=== PATIENT | male | born 1940 | race Caucasian/White ===

== ENCOUNTER 2019-11-27 07:36 | Observation (INO) | payer MEDICARE, OTHER, SELFPAY ==
[2019-11-27] VITALS (54 sets, daily range): BP systolic 109–203; BP diastolic 58–108; PULSE 49–100; RESP 0–23; TEMP 36.4–37.2; O2SAT 90–100
--- NOTE | 2019-11-27 08:11 | W.ED.GENAD ---
Discharge Plan Disposition Patient Disposition: [facility] INPATIENT Condition: Stable Discharge Details Chief Complaint: Dizzy/Sync Clinical Impression: Vertigo Primary Care Provider: Larry Boo ED Provider: Jose Avalos Home Meds and New Rx's Prescriptions: No Action lisinopril 20 mg Tablet 20 mg PO DAILY RF: 0 glipizide 10 mg Tablet 10 mg PO BID RF: 0 cyanocobalamin (vitamin B-12) [Vitamin B-12] 1,000 mcg Tablet 1,000 mcg PO DAILY RF: 0 amlodipine 5 mg Tablet 5 mg PO DAILY RF: 0 simvastatin 80 mg Tablet 80 mg PO DAILY RF: 0 aspirin [Aspirin Low Dose] 81 mg Tablet,Delayed Release (Dr/Ec) 81 mg PO DAILY RF: 0 metformin 1,000 mg Tablet 1,000 mg PO BID RF: 0 folic acid 1 mg Tablet 1 mg PO DAILY RF: 0 metoprolol tartrate 25 mg Tablet 12.5 mg PO BID RF: 0 Medical Decision Making 79-year-old male, lives in [facility], typically has his care at [facility]. His chronic medical problems include coronary artery disease, status post CABG, diabetes, hypertension, status post TAVR. Had a normal day ice fishing yesterday, then developed nausea and vomiting that is worse with ambulation as well as unsteadiness of gait at home last night approximately 6 PM. His medications include metformin, metoprolol, amlodipine. He is not anticoagulated. He is able to demonstrate normal neurologic exam while seated in the bed. Motion provokes his emesis. Blood pressure 178/82, pulse mid 50s, 72 on the EKG. Differential diagnosis includes peripheral vertigo, must exclude central source of vertigo, he has a history of coronary disease and therefore would consider ACS. Patient referred for CT scan of the head, chest x-ray, EKG, laboratory testing. Records were requested from [facility]. He was given 2.5 mg of Valium, Zofran, a small fluid bolus. The differential diagnosis includes vestibular neuritis, intracranial mass or hemorrhage, TIA. Records obtained from [place] no previous evaluation for CVA in January 2019 including CTA as well as MRI. Patient improved with the administration of Valium and fluids, does have persistent provocation of symptoms with movement. CAT scan with no intracranial hemorrhage, there is chronic white matter ischemic changes, atrophy, small hypodensities in the basal ganglia and thalamus consistent with remote lacunar infarctions. See formal report. Case discussed with Dr. Vázquez of [facility] neurology; he agrees with CTA today and appropriate to have MRI performed tomorrow morning. States he would continue daily aspirin, no further anticoagulation or antiplatelet. CTA with limited evaluation due to suboptimal timing. See formal report. No evidence of stenosis or dissection. CT of the abdomen was also obtained without evidence of obstruction. See the formal dictation. Patient is improving with medications. He is however still unable to ambulate independently. Admission discussed with Dr. Trevino, patient states to me he wishes to be full code but would not want prolonged life support. Lab Data Lab results reviewed: Yes I reviewed the patient's lab results. Labs: Laboratory Results - last 24 hr 11/27/19 11/27/19 08:30 08:30 WBC 7.22 RBC 4.48 L Hgb 13.4 L Hct 38.7 L MCV 86.4 MCH 29.9 MCHC 34.6 RDW 12.8 Plt Count 210 MPV 9.9 Immature Gran % 0.1 Neutrophils % 83.2 Lymphocytes % 9.6 Monocytes % 6.0 Eosinophils % 0.3 Basophils % 0.8 Absolute Neutrophils 6.01 Absolute Lymphocytes 0.69 L Absolute Monocytes 0.43 Absolute Eosinophils 0.02 Absolute Basophils 0.06 Sodium 141 Potassium 3.9 Chloride 104 Carbon Dioxide 24.0 Anion Gap 13.0 H BUN 16 Creatinine 0.82 Estimated GFR/1.73 m2 >= 60.00 Glucose 226 H Calcium 8.8 Total Bilirubin 0.6 AST 19 ALT 16 Alkaline Phosphatase 78 Troponin I < 0.05 Total Protein 7.1 Albumin 3.8 Lipase 89 ECG Data Attestation: I personally reviewed and interpreted this ECG (s) as follows: Interpretation: Normal sinus rhythm with a rate of 72, the QRS is narrow, there is flattened T waves in lead I, inverted T wave in aVL and V2. There is no ST segment elevation present. QTC is 475. When compared to EKG reviewed from [facility] dated February 01, 2019, the flattening in lead I, T wave inversion in aVL are similar. HPI General Mode of arrival: EMS. Date/Time Provider Initiated Documentation: 11/27/19 07:52. Limitations to Documentation: no limitations. Information obtained by: patient and family. History of Present Illness 79 year old M presents to the emergency department with the chief complaint of Nausea and vomiting beginning at 6 PM last night, described as moderate, Quality is described as other (Motion sensation), and is localized to the head. Patient reports no radiation. Patient started experiencing this hour(s) and it has been intermittent. Movement worsens symptoms and Other factors that worsen symptoms (Standing upright, denies near syncope.) . Patient notes denies chest pain, fever/chills, headaches, shortness of breath and syncope. Patient did receive the following treatments prior to arrival, none Related Data Home Medications Medication Instructions Recorded Confirmed amlodipine 5 mg PO DAILY 11/27/19 11/27/19 aspirin [Aspirin Low Dose] 81 mg PO DAILY 11/27/19 11/27/19 cyanocobalamin (vitamin B-12) 1,000 mcg PO DAILY 11/27/19 11/27/19 [Vitamin B-12] folic acid 1 mg PO DAILY 11/27/19 11/27/19 glipizide 10 mg PO BID 11/27/19 11/27/19 lisinopril 20 mg PO DAILY 11/27/19 11/27/19 metformin 1,000 mg PO BID 11/27/19 11/27/19 metoprolol tartrate 12.5 mg PO BID 11/27/19 11/27/19 simvastatin 80 mg PO DAILY 11/27/19 11/27/19 Allergies Allergy/AdvReac Type Severity Reaction Status Date / Time No Known Allergies Allergy Unverified 11/27/19 07:53 General Stated Complaint: Dizzy/Sync CINDY: 2 Review of Systems Narrative: Denies fall or injury, no headache, no chest pain, states recently well. Symptoms began at 6 AM, he has had days of loose, watery stool. [facility] Social History Smoking/Tobacco Use Status: Former Tobacco Use Alcohol Intake: never Substance use type: does not use Exam Narrative Exam Narrative: GEN: awake, alert, oriented 3. Pleasant, well groomed, interactive. HEAD: Normocephalic, atraumatic ENT: Mucous membranes moist, oropharynx unremarkable, External ear exam unremarkable EYES: PERRL, EOMI, visual wilson intact to confrontation. NECK: Full ROM, no MELYSSA, no menigismus CHEST/RESP: Nontender, clear to auscultation bilateral, no wheeze/rhonchi/rales CARDIOVASCULAR: RRR, soft blowing murmur best at sternal border left side, no rub roger. 2+ Rad pulse bilateral ABDOMEN: Soft, nontender, no mass. +Bowel sounds EXT: Full ROM, no edema, no rash Neuro: Grossly normal neurologic exam, conversant, interactive. Cranial nerves II through XII are intact, patient able to perform [id number]. No drift. Motor 5 out of 5 throughout the upper and lower extremity. Psych: Speech fluent, thoughts congruent, affect normal Course Vital Signs Vital signs: Vital Signs Pulse 54 L 11/27/19 07:44 Respiratory Rate 15 11/27/19 07:44 Blood Pressure 201/81 H 11/27/19 07:44 Pulse Oximetry 98 11/27/19 07:44 Temperature 36.4 C L 11/27/19 07:45 Temperature Source Skin 11/27/19 07:45 Pulse 51 L 11/27/19 08:01 Pulse 62 11/27/19 08:01 Respiratory Rate 13 11/27/19 08:01 Respiratory Effort Non-Labored 11/27/19 07:45 Blood Pressure 178/82 H 11/27/19 08:01 Blood Pressure Mean 107 11/27/19 08:01 Blood Pressure Position Supine 11/27/19 07:45 Pulse Oximetry 99 11/27/19 08:01 Oxygen Delivery Method Nasal Cannula 11/27/19 07:45 Pain Level 0 11/27/19 07:45
[2019-11-27] MEDS: Normal Saline 250 ML IV (08:15)
[2019-11-27] MEDS: Ondansetron 4 MG/2 ML VIAL (08:27)
[2019-11-27] MEDS: diazePAM 10 MG/2 ML SYR 2.5 MG IVP (08:28)
[2019-11-27 08:36] LABS: Abs Immature Grans 0.01 k/cumm (0.0-0.09); Absolute Basophil Count 0.06 k/cumm (0.0-0.2); Absolute Eosinophil Count 0.02 k/cumm (0.0-0.7); Absolute Lymphocyte Count 0.69 k/cumm (1.2-3.4); Absolute Monocyte Count 0.43 k/cumm (0.11-0.7); Absolute Neutrophil Count 6.01 k/cumm (1.2-6.7); Basophils % 0.8; Eosinophils % 0.3; HCT 38.7 % (40.0-50.0); HGB 13.4 g/dL (13.5-17.5); Immature Grans % 0.1 %; Lymphocytes % 9.6; Mean Corp. HGB Concentration 34.6 g/dL (32.0-36.0); Mean Corpuscular Hemoglobin 29.9 pg (27.0-33.0); Mean Corpuscular Volume 86.4 fL (80-95); Mean Platelet Volume 9.9 fL (8.0-11.0); Neutrophils % 83.2; Platelet Count 210 x1000/uL (130-400); RBC 4.48 m/cumm (4.50-6.00); RBC Distribution Width 12.8 % (11.8-14.1); White Blood Cell Count 7.22 k/cumm (4.4-10.8)
--- NOTE | 2019-11-27 08:42 | DI.CT_ITS ---
EXAM: CT HEAD WO CLINICAL HISTORY: vomiting TECHNIQUE: Noncontrast. COMPARISON: No exams were available for comparison FINDINGS: No acute hemorrhage, mass or infarct is seen. The ventricles are normal in size. There are old bilate ral basal ganglia lacunar infarcts. No skull fracture or sinus opacification is seen. IMPRESSION: No acute abnormality.
[2019-11-27 08:51] LABS: ALT 16 U/L (16-63); AST 19 U/L (15-37); Albumin 3.8 g/dL (3.4-5.0); Alkaline Phosphatase 78 U/L (46-116); BUN 16 mg/dL (7-18); Bilirubin, Total 0.6 mg/dL (0.2-1.0); CREATININE 0.82 mg/dL (0.70-1.30); Calcium 8.8 mg/dL (8.5-10.1); Chloride 104 mmol/L (98-107); Glucose 226 mg/dL (74-106); Lipase 89 U/L (73-393); Potassium 3.9 mmol/L (3.5-5.1); Sodium 141 mmol/L (136-145); Total Protein 7.1 g/dL (6.4-8.2); Troponin I < 0.05 ng/Ml (<0.06)
--- NOTE | 2019-11-27 08:53 | DI.RAD_ITS ---
EXAM: XR CHEST 2V PA LATERAL INDICATION: vomiting. COMPARISON: No exams were available for comparison TECHNIQUE: 2D digital imaging was performed. FINDINGS: Heart size is at the upper limits of normal. An aortic valve prosthesis is seen. Sternal wires and mediastinal clips are present. No infiltrate, effusion or pulmonary edema is seen. No free air or p neumomediastinum is identified. IMPRESSION: No acute abnormality.
--- NOTE | 2019-11-27 09:10 | DI.VRAD_ITS ---
PROCEDURE INFORMATION: Exam: XR Chest, 2 Views Exam date and time: 11/27/2019 8:57 AM Age: 79 years old Clinical indication: Other: Vomiting; Prior surgery TECHNIQUE: Imaging protocol: XR of the chest Views: 2 views. COMPARISON: No relevant prior studies available. FINDINGS: Lungs: Discoid atelectasis in the left base Pleural space: Unremarkable. No pleural effusion. No pneumothorax. Heart/Mediastinum: Status post cardiac valve replacement. No cardiomegaly. Bones/joints: Median sternotomy IMPRESSION: No acute process Dictated and Authenticated by: Joaquin Hoover MD. Ordering:AMANDA Garcia MD
--- NOTE | 2019-11-27 09:12 | DI.VRAD_ITS ---
PROCEDURE INFORMATION: Exam: CT Head Without Contrast Exam date and time: 11/27/2019 8:46 AM Age: 79 years old Clinical indication: Syncope and collapse and other: Vomiting TECHNIQUE: Imaging protocol: Computed tomography of the head without contrast. COMPARISON: No relevant prior studies available. FINDINGS: Brain: No acute intracranial hemorrhage. There is mild diffuse heterogeneity of the white matter attenuation, consistent with chronic white matter ischemic changes. Mild cerebral atrophy There are multiple small hypodensities in the basal ganglia, consistent with remote lacunar infarctions. Remote lacunar infarction in the right thalamus Ventricles: Normal. No ventriculomegaly. Bones/joints: Unremarkable. No acute fracture. Sinuses: Visualized sinuses are unremarkable. No fluid levels. Mastoid air cells: Visualized mastoid air cells are well aerated. Soft tissues: Unremarkable. IMPRESSION: No acute intracranial hemorrhage. Dictated and Authenticated by: Joaquin Hoover MD. Ordering:AMANDA Garcia MD
--- NOTE | 2019-11-27 10:08 | DI.CT_ITS ---
EXAM: CT ABDOMEN PELVIS WO CLINICAL HISTORY: VOMITING, VERTIGINOUS SYMPTOMS, VASCULOPATHY TECHNIQUE: Without IV and oral contrast. COMPARISON: No exams were available for comparison FINDINGS: There is an aortic valve prosthesis. There are heavily calcified coronary arteries. The aorta is n ormal in diameter. Heart size is within normal limits. The liver, spleen and adrenals are unremarka ble. A stone is seen in the gallbladder. There is no abnormal gallbladder distention, pericholecyst ic fluid or wall thickening. The aorta and iliac arteries are calcified but normal in diameter. The pancreas is mildly atrophic. There is a tiny hyperdense cyst at the upper pole of the left kidney. There is a cyst in the mid left kidney measuring 1.9 cm. There is a tiny nonobstructing stone at th e lower pole of the right kidney. There is no hydronephrosis. The bladder is somewhat distended but unremarkable. The prostate contains calcifications but appears normal in size. The appendix is nor mal. There is a question of mild thickening of proximal jejunum and adjacent mesenteric stranding. There are small bilateral inguinal hernias. The right contains fluid and the left contains fat. Deg enerative changes are noted in the spine. IMPRESSION: Limited exam due to lack of IV and oral contrast. There is questionable mild dilatation and wall th ickening of a loop of jejunum. Cholelithiasis without evidence of biliary dilatation or acute cholec ystitis.
--- NOTE | 2019-11-27 10:13 | DI.CT_ITS ---
EXAM: CT BRAIN NECK CTA CLINICAL HISTORY: VERTIGINOUS SYMPTOMS TECHNIQUE: Post IV contrast COMPARISON: CT ABDOMEN PELVIS WO from 11/27/2019 FINDINGS: The bolus timing is suboptimal. Arterial structures are not well opacified. There is calcification of both common carotid bulbs but no significant stenosis. The vertebral arteries show normal diamete r. There is calcification in the intracranial segments of the internal carotid arteries but no visib le stenosis. No aneurysm is seen. The left A1 segment appears diminutive. Stenosis in this area ca nnot be excluded. The parotid, submandibular and thyroid glands are unremarkable. Degenerative jimenez ges are seen in the cervical spine. Lung apices appear clear. IMPRESSION: Limited exam due to suboptimal bolus timing. There is a question of a diminutive left A1 segment maura suzie stenosis.
[2019-11-27] MEDS: Omnipaque 350 MG/ML 100 ML BTL IV (10:48)
[2019-11-27 11:22] LABS: Troponin I < 0.05 ng/Ml (<0.06)
[2019-11-27] MEDS: Meclizine 25 MG TAB PO (11:31)
--- NOTE | 2019-11-27 11:31 | DI.VRAD_ITS ---
PROCEDURE INFORMATION: Exam: CT Angiography Head With Contrast Exam date and time: 11/27/2019 10:27 AM Age: 79 years old Clinical indication: Other: Vertiginous symptoms TECHNIQUE: Imaging protocol: Computed tomography angiography of the head with intravenous contrast. 3D rendering: MIP and/or 3D reconstructed images were created by the technologist. Radiation optimization: All CT scans at this facility use at least one of these dose optimization techniques: automated exposure control; mA and/or kV adjustment per patient size (includes targeted exams where dose is matched to clinical indication); or iterative reconstruction. Contrast material: OMNIPAQUE 350; Contrast volume: 85 ml; Contrast route: IV; COMPARISON: CT HEAD WO 11/27/2019 8:42 AM FINDINGS: Right internal carotid artery: Atherosclerotic calcification. Intracranial segment is patent with no significant stenosis. No aneurysm. Right anterior cerebral artery: Unremarkable. No occlusion or significant stenosis. No aneurysm. Right middle cerebral artery: Unremarkable. No occlusion or significant stenosis. No aneurysm. Right posterior cerebral artery: Unremarkable. No occlusion or significant stenosis. No aneurysm. Right vertebral artery: Unremarkable. No occlusion or significant stenosis. No aneurysm. Left internal carotid artery: Atherosclerotic calcification. Intracranial segment is patent with no significant stenosis. No aneurysm. Left anterior cerebral artery: The A1 segment is not well visualized. The left PAM distal to the anterior communicating artery is opacified. No aneurysm. Left middle cerebral artery: Unremarkable. No occlusion or significant stenosis. No aneurysm. Left posterior cerebral artery: Unremarkable. No occlusion or significant stenosis. No aneurysm. Left vertebral artery: Unremarkable. No occlusion or significant stenosis. No aneurysm. Basilar artery: Unremarkable. No occlusion or significant stenosis. No aneurysm. Other vasculature: Sub-optimal timing bolus of contrast as the venous structures are more opacified than the arterial structures. Atherosclerotic calcifications of the intracranial arteries. HEAD: Brain: Mild diffuse heterogeneity of the white matter attenuation, consistent with chronic white matter ischemic changes. Redemonstrated multiple small hypodensities in the basal ganglia consistent with remote lacunar infarctions. Remote lacunar infarction of the right thalamus. No hemorrhage, mass effect, edema or abnormal extra-axial collection. Bones/joints: Arrested pneumatization of the sphenoid bone. IMPRESSION: 1. The left A1 segment of the anterior cerebral artery is not well visualized; however, there is distal opacification of the PAM beyond the anterior communicating artery. Unclear of chronicity and could be payroll representative of suboptimal contrast bolus/technique versus congenitally diminutive. 2. If continued vertiginous symptoms, recommend correlation to laterality with otology workup. PROCEDURE INFORMATION: Exam: CT Angiography Neck With Contrast Exam date and time: 11/27/2019 10:27 AM Age: 79 years old Clinical indication: Other: Vertiginous symptoms TECHNIQUE: Imaging protocol: Computed tomography angiography of the neck with intravenous contrast. 3D rendering: MIP and/or 3D reconstructed images were created by the technologist. Radiation optimization: All CT scans at this facility use at least one of these dose optimization techniques: automated exposure control; mA and/or kV adjustment per patient size (includes targeted exams where dose is matched to clinical indication); or iterative reconstruction. Contrast material: OMNIPAQUE 350; Contrast volume: 85 ml; Contrast route: IV; COMPARISON: CT HEAD WO 11/27/2019 8:42 AM FINDINGS: VASCULATURE: Right common carotid artery: Atherosclerotic calcification of the carotid bifurcation/bulb. No significant stenosis. No dissection or occlusion. Right internal carotid artery: Unremarkable extracranial segment. No stenosis. No dissection or occlusion. Right external carotid artery: Unremarkable. No occlusion or stenosis of the origin. Right vertebral artery: Atherosclerotic calcification at the origin. No significant stenosis. No dissection or occlusion. Left common carotid artery: Atherosclerotic calcification of the carotid bifurcation/bulb. No stenosis. No dissection or occlusion. Left internal carotid artery: Unremarkable extracranial segment. No stenosis. No dissection or occlusion. Left external carotid artery: Unremarkable. No occlusion or stenosis of the origin. Left vertebral artery: Unremarkable. No stenosis. No dissection or occlusion. Other vasculature: Sub-optimal timing bolus of contrast as the venous structures are more opacified than the arterial structures. NECK: Bones/joints: No acute fracture. Spondylosis. Median sternotomy changes. Soft tissues: Large nuchal (posterior neck) subcutaneous lipomatous mass with numerous thin septations. Lymph nodes: Partially visualized mediastinal lymphadenopathy with enlarged precarinal lymph node containing calcification measuring approximately 2 cm in short axis. IMPRESSION: 1. Partially visualized calcified mediastinal lymphadenopathy. 2. Large nuchal (posterior neck) subcutaneous lipomatous mass with numerous thin septations. 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 Recommend MRI with contrast of the posterior neck to further evaluate for complexity. 3. Limited evaluation due to suboptimal timing bolus of contrast. COMMENT: Reference per NASCET criteria for degree of stenosis: Mild: less than 50% stenosis. Moderate: 50-69% stenosis. Severe: 70-94% stenosis. Near occlusion: 95-99% stenosis. Dictated and Authenticated by: Td Brush MD. Ordering:AMANDA Garcia MD
--- NOTE | 2019-11-27 11:47 | DI.VRAD_ITS ---
PROCEDURE INFORMATION: Exam: CT Abdomen And Pelvis Without Contrast Exam date and time: 11/27/2019 10:05 AM Age: 79 years old Clinical indication: Abdominal tenderness and nausea and vomiting; Additional info: Vomiting, vertiginous sx's, vasculopath TECHNIQUE: Imaging protocol: Computed tomography of the abdomen and pelvis without contrast. Radiation optimization: All CT scans at this facility use at least one of these dose optimization techniques: automated exposure control; mA and/or kV adjustment per patient size (includes targeted exams where dose is matched to clinical indication); or iterative reconstruction. COMPARISON: No relevant prior studies available. FINDINGS: Lungs: Basilar/dependent scarring and/or atelectasis. Heart: There is calcification of the mitral valve annulus. Liver: The liver is normal. Gallbladder and bile ducts: A calcified gallstone is present. Pancreas: There is diffuse atrophy of the pancreatic parenchyma. Spleen: The spleen is normal. Adrenals: Unremarkable. No mass. Kidneys and ureters: Left renal upper pole intraparenchymal density measuring approximate 6 mm may represent hemorrhagic or proteinaceous cyst. Left renal midpole fluid hypodensity measuring 1.9 cm, likely simple cysts. Punctate nonobstructing right lower pole nephrolith. No hydronephrosis. Mild bilateral perinephric stranding. Stomach and bowel: There is mild submucosal fatty infiltration about the region of the pylorus of the stomach which could represent a chronic inflammatory process. Small loop of proximal jejunum possibly with some bowel wall thickening and adjacent mesenteric stranding. No obstruction. Appendix: No evidence of appendicitis. Intraperitoneal space: Unremarkable. No free air. No significant fluid collection. Vasculature: There is severe atherosclerotic calcification of the coronary arteries. Sternotomy wires and mediastinal surgical clips are present, consistent with previous coronary arterial bypass grafting and/or aortic valve replacement. The aorta demonstrates moderate atherosclerotic calcification.There is no evidence of an abdominal aortic aneurysm. Lymph nodes: Unremarkable. No enlarged lymph nodes. Bladder: Unremarkable as visualized. Reproductive: The prostate gland demonstrates nonspecific parenchymal calcifications. Bones/joints: Spondylosis. Degenerative changes of the sacroiliac joints. Osteopenia and nonspecific heterogeneity of the bone marrow of the pelvis. No acute fracture. No concerning osseous lesion. Soft tissues: Small amount of fluid visualized within the right inguinal canal. IMPRESSION: 1. Small loop of proximal jejunum possibly with some bowel wall thickening and adjacent mesenteric stranding which could represent inflammatory/infectious process versus less likely ischemic process. Limited by lack of intravenous and enteric contrast. 2. Small amount of fluid visualized within the right inguinal canal. Recommend clinical correlation and scrotal ultrasound if needed. 3. Mild submucosal fatty infiltration about the region of the pylorus of the stomach which could represent a chronic inflammatory process. Recommend clinical correlation. 4. Gallstone in the gallbladder. No evidence of cholecystitis. 5. Severe coronary artery calcifications. Mitral annular calcifications. Aortic valve replacement/TAVR. Median sternotomy changes. Dictated and Authenticated by: Td Brush MD. Ordering:AMANDA Garcia MD
--- NOTE | 2019-11-27 13:52 | HPE_ITS ---
Date of service: 11/27/19 Time of Service: 13:53 Assessment and Plan Assessment and plan (1) Benign positional vertigo: Start date: 11/27/19 Start time: 14:09 Status: Acute Assessment and plan: States woosy and wobbling, feels like drunk when trying to ambulate. Nystagmus vertically. Nauseated with vomiting prior to arrival. Received antiemetics with IVF in ED feeling better. No longer nauseated. Does continue to have wobbly sensation when trying to ambulate. Was not able to tolerate meclizine. Valium 5 mg TID po prn dizziness Benadryl 25 IVP q [address]/CTA negative. PT-alea hallpike maneuver. Consider MRI if symptoms do not improve. (2) Nausea and vomiting in adult: Start date: 11/27/19 Start time: 14:13 Status: Acute Assessment and plan: Improving guillermo (3) Diabetes mellitus: Start date: 11/27/19 Start time: 14:16 Status: Chronic Assessment and plan: Hold metformin patient received contrast, hold glipizide will SSI and monitor fingersticks. (4) S/P TAVR (transcatheter aortic valve replacement): Start date: 11/27/19 Start time: 14:16 Status: Acute Assessment and plan: 2019. No chest pain. Trops negative. (5) HTN (hypertension): Start date: 11/27/19 Start time: 14:16 Status: Chronic Assessment and plan: Continue amlodipine History of Present Illness History of Present Illness Chief Complaint: Dizziness, nausea and vomiting Narrative: 79 y.o male with PMH of TAVR-2019, CAD, HTN, 4 vessel CABG 1959', DM, TIA, presents to [facility] ED after ice fishing yesterday going home, feeling dizzy and waking up this am with persistent dizziness accompanied with N/V. Lab work in ED was unremarkable. Imaging revealing no arthrosclerosis or CVA. Given patient symptoms this appears to be more BPV. As he is feeling better. Nausea has subsided with zofran. IVF and valium given in the ED patient states symptoms improving however when trying to ambulate a woosy feeling comes back. Mr. Gomez compares the feeling to being drunk. He is being admitted to m/s obs for further management of his symptoms. Will have PT work with him to preform alea-hallpike for relief of symptoms. He denies CP, SOB, N/V/D. Review of Systems All systems reviewed & are unremarkable except as noted in HPI and below PFSH Medical History (Updated 11/27/19 @ 14:09 by Vibha Ballesteros NP) CAD (coronary artery disease) (Chronic) Diabetes mellitus (Chronic) HTN (hypertension) (Chronic) Surgical History (Updated 11/27/19 @ 14:00 by Vibha Ballesteros NP) Hx of CABG (Chronic) S/P TAVR (transcatheter aortic valve replacement) (Acute) Social History Smoking/Tobacco Use Status: Former Tobacco Use Alcohol Intake: never Substance use type: does not use Meds Home Medications and Allergies Home Medications Medication Instructions Recorded Confirmed Type amlodipine 5 mg PO DAILY 11/27/19 11/27/19 History aspirin [Aspirin Low Dose] 81 mg PO DAILY 11/27/19 11/27/19 History cyanocobalamin (vitamin B-12) 1,000 mcg PO DAILY 11/27/19 11/27/19 History [Vitamin B-12] folic acid 1 mg PO DAILY 11/27/19 11/27/19 History glipizide 10 mg PO BID 11/27/19 11/27/19 History lisinopril 20 mg PO DAILY 11/27/19 11/27/19 History metformin 1,000 mg PO BID 11/27/19 11/27/19 History metoprolol tartrate 12.5 mg PO BID 11/27/19 11/27/19 History simvastatin 80 mg PO DAILY 11/27/19 11/27/19 History Allergies Allergy/AdvReac Type Severity Reaction Status Date / Time No Known Allergies Allergy Unverified 11/27/19 07:53 Exam Const General: cooperative, healthy appearing, comfortable, no acute distress and well groomed Nutritional Appearance: average body habitus Orientation: alert, awake and oriented x3 HENMT Head: normal to inspection, normocephalic and atraumatic Ears: hearing grossly normal bilaterally Mouth: moist mucous membranes Teeth and gingiva: poor dentition Eyes General: appearance normal, both eyes and all related structures Conjunctivae: conjunctivae normal Sclera: sclerae normal Pupils: PERRL EOM: nystagmus Neck Neck: trachea midline Thyroid: thyroid normal Carotids: normal carotid upstroke Lymphatic: no lymphadenopathy noted Chest Chest: normal inspection of the chest Resp Effort & Inspection: normal respiratory effort and able to speak in complete sentences Auscultation: clear to auscultation bilaterally Cardio Jugular venous pressure: no JVD Rate: regular rate Rhythm: regular rhythm Heart Sounds: S1 normal and S2 normal GI Inspection: normal to inspection Palpation: soft and no hepatosplenomegaly Auscultation: normal bowel sounds General: CVA tenderness and deferred Back/Spine/Pelvis Cervical Spine: normal cervical lordosis Thoracic/Lumbar Spine: thoracic and lumbar spine normal to inspection Skin General skin exam: no rashes or lesions noted Neuro General: alert, awake and oriented x3 Cranial Nerves: nystagmus Cognition: normal cognition Speech: speech normal Gait: other Extrem General: normal to inspection, full ROM and no clubbing, cyanosis or edema Right upper extremity: full ROM Left upper extremity: full ROM Right lower extremity: full ROM Left lower extremity: full ROM Psych Appearance: grossly normal and well kempt Mood: congruent mood Affect: normal affect Attitude: cooperative Results Labs Result diagrams: 11/27/19 08:30 11/27/19 08:30 Labs: Laboratory Results - last 24 hr 11/27/19 11/27/19 11/27/19 08:30 08:30 11:00 WBC 7.22 RBC 4.48 L Hgb 13.4 L Hct 38.7 L MCV 86.4 MCH 29.9 MCHC 34.6 RDW 12.8 Plt Count 210 MPV 9.9 Immature Gran % 0.1 Neutrophils % 83.2 Lymphocytes % 9.6 Monocytes % 6.0 Eosinophils % 0.3 Basophils % 0.8 Absolute Neutrophils 6.01 Absolute Lymphocytes 0.69 L Absolute Monocytes 0.43 Absolute Eosinophils 0.02 Absolute Basophils 0.06 Sodium 141 Potassium 3.9 Chloride 104 Carbon Dioxide 24.0 Anion Gap 13.0 H BUN 16 Creatinine 0.82 Estimated GFR/1.73 m2 >= 60.00 Glucose 226 H Calcium 8.8 Total Bilirubin 0.6 AST 19 ALT 16 Alkaline Phosphatase 78 Troponin I < 0.05 < 0.05 Total Protein 7.1 Albumin 3.8 Lipase 89 Last Vital Signs Temp 36.4 C L 11/27/19 13:42 Pulse 91 H 11/27/19 13:42 Resp 15 11/27/19 13:42 BP 109/61 11/27/19 13:42 Pulse Ox 98 11/27/19 13:42
[2019-11-27] MEDS: Normal Saline 1,000 ML 85 ML IV (14:31)
[2019-11-27] MEDS: Normal Saline Flush 10 ML SYR IVP ×2 (14:32→20:44)
[2019-11-27] MEDS: Enoxaparin 40 MG/0.4 ML SYR SC (14:46)
[2019-11-27] MEDS: diphenhydrAMINE 50 MG/ML VIAL 25 MG IVP ×2 (14:48→20:43)
[2019-11-27] MEDS: Insulin Aspart 300 UNITS/3 ML PEN SC (18:11)
[2019-11-27] MEDS: Metoprolol 12.5 MG TAB PO (20:44)
[2019-11-27] MEDS: Simvastatin 40 MG TAB 80 MG PO (20:44)
[2019-11-28] MEDS: diphenhydrAMINE 50 MG/ML VIAL 25 MG IVP (02:19)
[2019-11-28] MEDS: Normal Saline Flush 10 ML SYR IVP (02:20)
[2019-11-28 03:05] VITALS: BP 132/67; PULSE 54; RESP 16; TEMP 36.7; O2SAT 95
[2019-11-28 07:21] LABS: Anion Gap 7.4 mmol/L (3-11); BUN 21 mg/dL (7-18); CO2 27.6 mmol/L (21.0-32.0); CREATININE 1.13 mg/dL (0.70-1.30); Calcium 8.7 mg/dL (8.5-10.1); Chloride 108 mmol/L (98-107); Glucose 192 mg/dL (74-106); Potassium 4.2 mmol/L (3.5-5.1); Sodium 143 mmol/L (136-145)
[2019-11-28 07:56] VITALS: BP 154/75; PULSE 67; RESP 18; TEMP 36.7; O2SAT 96
[2019-11-28] MEDS: Metoprolol 12.5 MG TAB PO (08:37)
[2019-11-28] MEDS: Insulin Aspart 300 UNITS/3 ML PEN SC ×2 (08:38→11:49)
[2019-11-28] MEDS: Cyanocobalamin 500 MCG TAB 1000 MCG PO (08:38)
[2019-11-28] MEDS: Folic Acid 1 MG TAB PO (08:38)
[2019-11-28] MEDS: Lisinopril 20 MG TAB 40 MG PO (08:38)
[2019-11-28] MEDS: Meclizine 25 MG TAB PO ×2 (11:00→15:18)
[2019-11-28] MEDS: Aspirin E.C. 81 MG TABEC PO (11:00)
--- NOTE | 2019-11-28 11:00 | IN_ITS ---
Date of service: 11/28/19 Time of Service: 11:00 PT Notes Visit Reasons: Vertigo Physical Therapy Inpatient Initial Evaluation Date: 11/28/2019 Referring Doctor: Gerson Trevino MD PT Orders: PT CONSULT: Fall safety assessment. Vertigo therapy maneuvers. Precautions: Fall. Standard. Activity as tolerated. Patient Profile/Admitting Diagnosis: Patient is an 79-year-old male who presented to the ED on 11/27/2019 with chief complaints of nausea, vomiting, and dizziness especially with ambulation performance. Head CT and CTA are both negative for any atherosclerotic process nor CVA. Patient is diagnosed with benign paroxysmal positional vertigo associated with nausea and vomiting. PMHX: Medical History (Updated 11/27/19 @ 14:09 by Vibha Ballesteros NP) CAD (coronary artery disease) (Chronic) Diabetes mellitus (Chronic) HTN (hypertension) (Chronic) Surgical History (Updated 11/27/19 @ 14:00 by Vibha Ballesteros NP) Hx of CABG (Chronic) S/P TAVR (transcatheter aortic valve replacement) (Acute) Social History/Home Situation: Patient lives with in a 2 floor house with no steps to enter. Patient states that he does not need to go up to the second floor as he has everything he needs on the main floor of the house. He is independent with all last of ADLs prior to admission. He is an avid ice ayon. Equipment Owned/DME: None Subjective: Patient continues to report lightheadedness comparable to being drunk. He did emphasize that symptoms have considerably subsided and that he has not needed to use the emesis bag since this morning. He reports no falls for the past 12 months. He hopes to go home today. Objective: General Observation: Patient seen sitting on bedside chair. IV access to left UE. New: Subcutaneous lipomatous mass that is non-tender/nonpainful to palpa tion. Mental Status: Alert and oriented x4 Pain: 0/10 Vital Signs: Supine?24/88 mmHg, 69 bpm, and 97% on room air; second testing in supine?179/77 mmHg, 68 bpm, and 97% on room air Sitting?176/51 mmHg, 68 bpm, 98% on room air Standing?159/82 mmHg, 72 bpm, 96% on room air ROM: Right Upper Extremity: Shoulder Flexion WFL. Shoulder abduction WFL. Elbow flexion WFL. Wrist flexion WFL. Opening and closing of hand WFL. Left Upper Extremity: Shoulder Flexion WFL. Shoulder abduction WFL. Elbow flexion WFL. Wrist flexion WFL. Opening and closing of hand WFL. Right Lower Extremity: Hip flexion WFL. Hip abduction WFL. Knee flexion WFL. Ankle dorsiflexion WFL. Ankle plantarflexion WFL. Left Lower Extremity: Hip flexion WFL. Hip abduction WFL. Knee flexion WFL. Ankle dorsiflexion WFL. Ankle plantarflexion WFL. Strength: Right Upper Extremity: Shoulder flexors 5/5. Shoulder abductors 5/5. Elbow flexors 5/5. Elbow extensors 5/5. Grid Casting Machine Operator Helper strong. Left Upper Extremity: Shoulder flexors 5/5. Shoulder abductors 5/5. Elbow flexors 5/5. Elbow extensors 5/5. Grid Casting Machine Operator Helper strong. Right Lower Extremity: Hip flexors 5/5. Hip abductors 5/5. Knee flexors 5/5. Knee extensors 5/5. Ankle dorsiflexors 5/5. Ankle plantarflexors 5/5. Left Lower Extremity:Hip flexors 5/5. Hip abductors 5/5. Knee flexors 5/5. Knee extensors 5/5. Ankle dorsiflexors 5/5. Ankle plantarflexors 5/5. Sensation: Intact as to pain and pressure on bilateral lower extremities. Bed Mobility/Transfers: Rolling independent Supine to sit supervision Sit to supine supervision Sit to stand CGA Stand to sit CGA Bed to chair CGA Chair to bed CGA Gait: Patient tolerated level surface ambulation of 120 feet +25 feet +25 using front wheeled walker with CGA of PT and SBA of student PT. Patient did report mild unsteadiness during ambulation activity which he states has greatly improved compared to day of admission. Ataxic gait. Decrease gait velocity due to unsteadiness. Balance: Static Sitting: Normal Dynamic Sitting: Good Static Standing: Fair Dynamic Standing: Fair Special Tests: Mobility Limitations Standardized Measure [facility] AM-PAC 6 clicks Basic Mobility Inpatient Short Form: Raw Score: 19 CMS Score: 42% deficit TESTING FOR VERTIGO: Negative for spontaneous nystagmus. Sharp-Anahi test and Alar ligament test limited by nuchal subcutaneous lipomatous mass. A left torsional upbeating nystagmus was seen with both right and the left [place]-Hallpike but symptom and intensity provocation were greater with the right [place]-Hallpike. Supine head roll test negative. Informed Consent/Education: Patient instructed in purpose of PT consult and plan of care. Assessment: Patient with posterior posterior canal benign paroxysmal positional vertigo. Patient is an 79-year-old male who presented to the ED on 11/27/2019 with chief complaints of nausea, vomiting, and dizziness especially with ambulation performance. Head CT and CTA are both negative for any atherosclero tic process nor CVA. Patient is diagnosed with benign paroxysmal positional vertigo associated with nausea and vomiting, Patient presents with clinical signs and symptoms consistent with current/ad mitting diagnoses that have resulted to mobility limitations, gait instability, generalized weakness, and impairment of motor control as demonstrated by the following impairment level findings: 1. Dizziness with positional change 2. Impaired sitting/standing balance 3. Impaired activity tolerance Impairments are contributing to the following functional limitations: 1. Dependent bed mobility skills 2. Increased dependence with transfers 3. Inability to safely ambulate without assistive device and physical assistance 4. Increase completion time for mobility ADL performance 5. Increased fall risk 6. Inability to negotiate steps alone safely Patient is assessed as a 91120 moderate complexity based on the following: History: 79-year-old male with past medical history, impairment level findings, functional limitations, and [place] AM PAC score of 42% deficit Examination: Demonstrable impairment in strength, balance, and range of motion with underlying impairments and functional limitations as documented above Presentation: Evolving Decision Makin moderate complexity Goals: Goals X1 week 1. Supine-Sit independent 2. Sit-Supine independent 3. Sit-Stand independent 4. Stand-Sit independent 5. Bed-Chair independent 6. Chair-Bed independent 7. Independent gait on level surface with use of least restrictive device for at least 300 feet without report of pain nor dyspnea 8. Independent stair negotiation while holding onto bilateral rails for at least 10 steps without report of pain nor dyspnea 9. Independent with home exercise program 10. Good static and dynamic standing balance/tolerance Plan of Care/Treatment Plan: 1-2x/day, 7 days/week x 1 week. Plan of care has been reviewed with the PROJECT SCHEDULER providing the service under Physical Therapy direction. Initiate Physical Therapy intervention for strengthening, bed mobility, transfers, gait, stairs, balance training, use of assistive device. DISCHARGE RECOMMENDATIONS: Continued outpatient physical therapy for management of posterior canal BPPV as needed. Patient will highly benefit from the use of a front wheeled walker in order to increase stability of gait and reduce fall risk at discharge destination. TREATMENT CODE/TIME: Patient received initial evaluation for posterior canal BPPV and received to Robin maneuvers with good response. We will plan on a second session to do 2-3 more Robin maneuvers in order to facilitate resolution of symptoms. 33187 x 34 minutes beginning at 9:01 AM, [id number] x 30 minutes beginning at 11 AM. Thank you very much for this referral. Faina Yancey PT, DPT, CLT [facility] [place], [place]
[2019-11-28 11:28] VITALS: BP 162/73; PULSE 54; RESP 17; TEMP 36.6; O2SAT 97
--- NOTE | 2019-11-28 14:47 | PT.INTREAT ---
Date of service: 11/28/19 Time of Service: 13:19 PT Notes Visit Reasons: Vertigo Inpatient Physical Therapy Treatment Note [facility] Date: 11/28/2019 PRECAUTIONS: Fall. Standard. Activity as tolerated. SUBJECTIVE: Patient does not report any dizziness throughout to Robin maneuvers done on him however patient reports heaviness in his head upon assessment resumption of sitting position from sit maneuver that subsides after 1 to 2 minutes. OBJECTIVE: IV access remains open and the left UV. PAIN: 0/10 BED MOBILITY/TRANSFERS Rolling L/R: Independent Supine-sit: Supervision Sit-supine: Supervision Sit-stand: CGA Stand-sit: CGA Bed-Chair: CGA Chair-bed: [facility] GAIT Assistive Device: Front wheeled walker Weight bearing: Full weightbearing Assist: [facility] Distance: 25 feet +120 feet +25 feet Deviation: Gait ataxic. Gait velocity decreased. Step height and length decreased. THERA ACT: 2 Robin maneuvers performed for patient in order to facilitate resolution of left posterior canal BPPV. ASSESSMENT: Assessment: Patient with posterior posterior canal benign paroxysmal positional vertigo. Patient is an 79-year-old male who presented to the ED on 11/27/2019 with chief complaints of nausea, vomiting, and dizziness especially with ambulation performance. Head CT and CTA are both negative for any atherosclerotic process nor CVA. Patient is diagnosed with benign paroxysmal positional vertigo associated with nausea and vomiting. A Romberg test was performed during the afternoon session and yielded positive results with patient demonstrating significant posterolateral sway with vision occluded. Patient's gait abnormality along with this test result behooves the need for an MRI testing to rule out any neurologic pathology. Hospitalist and MANAGER SECONDARY will be consulted regarding this matter. Plan of Care/Treatment Plan: 1-2x/day, 7 days/week x 1 week. Plan of care has been reviewed with the PUBLIC HEALTH SANITARIAN TECHNICIAN providing the service under Physical Therapy direction. Initiate Physical Therapy intervention for strengthening, bed mobility, transfers, gait, stairs, balance training, use of assistive device. DISCHARGE RECOMMENDATIONS: Continued outpatient physical therapy for management of posterior canal BPPV as needed. Patient will highly benefit from the use of a front wheeled walker in order to increase stability of gait and reduce fall risk at discharge destination. TREATMENT CODE/TIME: 41818 x 29 minutes beginning at 1319 p.m..
[2019-11-28] MEDS: Enoxaparin 40 MG/0.4 ML SYR SC (14:52)
--- NOTE | 2019-11-28 15:18 | INITIAL_ITS ---
- If Service Date Differs Date of service: 11/28/19 Time of Service: 15:18 Care Management Initial Assess REASON FOR HOSPITALIZATION:: Vertigo PAST MEDICAL HISTORY/PAST SURGICAL HISTORY:: Nausea and vomiting in adult, benign postural vertigo, transcatheter aortic valve replacement, hypertension, diabetes. Surgical history includes CABG and TAVR PREVIOUS FUNCTIONAL STATUS/SOCIAL/FAMILY SUPPORTS:: Nikita lives with his spouse in [facility]. He has 2 of his own children and 3 stepchildren. 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 CURRENT FUNCTIONAL STATUS:: Nikita sitting up in the chair he is hopeful to be discharged home today. Nikita is able to discuss events that led to admission, including vomiting. He states he tried to manage his symptoms at home however after all day of vomiting he decided to go to the ED. Nikita describes good support at home, he states his symptoms have improved and he feels ready for discharge. ADVANCE DIRECTIVES:: None on file he is willing to accept the forms and reviewed them with his . Has patient been provided with information about the portal?: Yes Did the patient sign up for the portal?: No CODE STATUS:: Full Code INSURANCE COVERAGE / FINANCIAL ISSUES:: Medicare and [employer] CURRENT HOME/COMMUNITY SERVICES/EQUIPMENT:: None at this time. PRIMARY CARE PHYSICIAN:: Larry Cuadra POTENTIAL DISCHARGE NEEDS:: Follow-up appointment scheduled with primary care provider, medications, and follow-up plan of care PATIENT/FAMILY EDUCATION NEEDS:: Discharge education, limitations, follow-up plan of care, asked me 3 and self management. ANTICIPATED BARRIERS TO DISCHARGE:: None identified TRANSPORTATION:: Spouse to transport him home at time of discharge. PLAN:: Nikita plans on being discharged home today, he will follow-up with primary care as directed. Tim middleton coordinated by CM at time of discharge through [facility] patient's choice. No additional support services, needed at time of discharge.
--- NOTE | 2019-11-28 15:25 | W.PM.DS.N ---
Date of service: 11/28/19 Time of Service: 15:26 DS: Diagnosis Discharge Diagnosis (1) Benign positional vertigo: Status: Acute (2) Nausea and vomiting in adult: Status: Acute (3) Diabetes mellitus: Status: Chronic (4) S/P TAVR (transcatheter aortic valve replacement): Status: Acute (5) HTN (hypertension): Status: Chronic Discharge Plan Disposition Patient Disposition: HOME Condition: Stable Discharge Details Chief Complaint: Dizzy/Sync Clinical Impression: Vertigo Reason For Visit: VERTIGO Admit Date/Time: 11/27/19 12:18 Admit Provider: Gerson Pretty Attending Provider: Gerson Pretty Primary Care Provider: Larry Boo ED Provider: Jose Avalos Hospital Course Hospital Course: This is an 79 year old male with past medical history of TAVR-2019, coronary artery disease, hypertension, 4 vessel CABG , diabetes mellitus type 2, transient ischemic attack, presents to the ED at [facility] after waking up with persistent dizziness accompanied with N/V. He reports he was in his usual state of health and spent previous day ice fishing. Lab work in ED was unremarkable. Imaging revealing no arthrosclerosis or CVA. Given patient symptoms this appears to be more consistent with vertigo. His nausea has subsided with zofran. IVF and valium given in the ED patient states symptoms improving however when trying to ambulate a woosy feeling comes back. Mr. Gomez compares the feeling to being drunk. [place] [facility] [place] management of his symptoms. PT worked with him to preform alea-hallpike which was positive, they performed the paty maneuver with some improvement in his symptoms. He was reambulated but with some ataxia and positive rhomberg. other chapin neuro exam unremarkable. He has a CTA head and neck which was a limited exam due to suboptimal bolus timing. There is a question of a diminutive left A1 segment versus stenosis. We recommended and MRI/MRA of the brain which is adamantly is declining, stating that he couldn't tolerate one a year ago even with pre-med and that his symptoms are improved and he would return if needed. I did discuss that we couldn't fully and adequately evaluate him without it. He still declines. He is currently on high dose statin and full dose asa which will be continued at discharge. he will follow up with pcp for further outpatient testing and neurolgy follow up. He was advised to hold his meformin for 48 hours after CTA to avoid kidney damage. Home Meds and New Rx's Prescriptions: Continued lisinopril 20 mg Tablet 40 mg PO DAILY RF: 0 glipizide 10 mg Tablet 10 mg PO BID RF: 0 cyanocobalamin (vitamin B-12) [Vitamin B-12] 1,000 mcg Tablet 1,000 mcg PO DAILY RF: 0 simvastatin 80 mg Tablet 80 mg PO QPM RF: 0 folic acid 1 mg Tablet 1 mg PO DAILY RF: 0 metoprolol tartrate 25 mg Tablet 12.5 mg PO BID RF: 0 aspirin 325 mg Tablet 325 mg PO DAILY RF: 0 metformin 1,000 mg Tablet 1,000 mg PO BID Qty: 0 RF: 0 Discharge Instructions Instructions: Vertigo (DC) Additional Instructions: You need to hold your metformin for 48 hours (2 days) because you received IV contrast for your CAT scan. Stand Alone Forms: Nursing Discharge Form Referrals: Larry Boo [Primary Care Provider] - 11/30/19 10:30 am Activity:: walker for gait safety and stability Equipment/Supplies:: Walker Diet:: Carb Counting Discharge Orders Discharge Orders: Discharge Order (Routine); Ordered 11/28/19 Ordered By: Susanna Betancourt DS: Summary Status at Discharge Functional status at discharge: uses cane/walker Overall status at discharge: patient is progressing back to baseline Mental Status: mental status grossly normal Speech and Movement: speech and movement normal Mood: congruent mood Affect: normal affect Exam Const General: cooperative, healthy appearing, comfortable and no acute distress Nutritional Appearance: average body habitus Orientation: alert, awake and oriented x3 HENMT Head: normal to inspection, normocephalic and atraumatic Mouth: oral mucosae normal Eyes EOM: nystagmus Resp Effort & Inspection: normal respiratory effort Auscultation: clear to auscultation bilaterally Cardio Rate: regular rate Rhythm: regular rhythm GI Inspection: normal to inspection Palpation: soft Auscultation: normal bowel sounds Skin General skin exam: no rashes or lesions noted Neuro General: alert, awake and oriented x3 Cranial Nerves: CN's II-XI intact bilaterally and nystagmus Cognition: normal cognition Speech: speech normal Gait: ataxic Motor: muscle tone normal throughout and strength 5/5 throughout Extrem General: normal to inspection and full ROM Psych Mental Status: mental status grossly normal Speech and Movement: speech and movement normal Mood: congruent mood Affect: normal affect DS: Data Vitals/I&O Vitals and I&O: Vital Signs Temperature 36.6 C 11/28/19 11:28 Temperature Source Tympanic 11/28/19 11:28 Pulse 54 L 11/28/19 11:28 Pulse Rhythm Regular 11/28/19 08:40 Pulse 94 H 11/27/19 13:20 Respiratory Rate 17 11/28/19 11:28 Respiratory Effort Non-Labored 11/28/19 08:40 Respiratory Depth Normal 11/28/19 08:40 Respiratory Pattern Normal 11/28/19 08:40 Blood Pressure 162/73 H 11/28/19 11:28 Blood Pressure Mean 73 11/27/19 13:15 Blood Pressure Position Supine 11/27/19 07:45 Pulse Oximetry 97 11/28/19 11:28 Oxygen Delivery Method Room Air 11/28/19 11:28 Oxygen Flow Rate 0 11/28/19 11:28 Pain Level 0 11/28/19 11:28 Intake & Output 11/27/19 11/28/19 11/28/19 23:59 11:59 23:59 Intake Total 450.25 / 450.25 1360 / 1720 360 / 1720 Output Total 200 / 200 100 / 100 Balance 250.25 / 250.25 1260 / 1620 360 / 1620 Weight 68.4 kg 67.5 kg Intake: IV 330.25 / 330.25 1000 / 1000 Oral 120 / 120 360 / 720 360 / 720 Output: Urine 200 / 200 100 / 100 Other: Urine Color Yellow Dark Rachel Urine Appearance Clear Clear Urine Odor Normal Comment voiding into toilet w/o difficulty Stool Size Large Stool Characteristics Soft Formed Brown Voiding Methods Urinal Urinal Data Completed and Pending Labs on day of discharge: Labs from last 24 hours 11/28/19 06:30 Sodium 143 Potassium 4.2 Chloride 108 H Carbon Dioxide 27.6 Anion Gap 7.4 BUN 21 H Creatinine 1.13 Estimated GFR/1.73 m2 >= 60.00 Glucose 192 H Calcium 8.7 PFSH Medical History (Updated 11/27/19 @ 14:09 by Vibha Ballesteros NP) CAD (coronary artery disease) (Chronic) Diabetes mellitus (Chronic) HTN (hypertension) (Chronic) Surgical History (Updated 11/27/19 @ 14:00 by Vibha Ballesteros NP) Hx of CABG (Chronic) S/P TAVR (transcatheter aortic valve replacement) (Acute) Social History Smoking/Tobacco Use Status: Former Tobacco Use Alcohol Intake: never Substance use type: does not use
[2019-11-28 15:45] VITALS: BP 167/80; PULSE 58; RESP 18; TEMP 37.1; O2SAT 97
--- NOTE | 2019-11-28 16:27 | CMDISCH_ITS ---
- If Service Date Differs Date of service: 11/28/19 Time of Service: 16:27 LACE Index Scoring Tool - Questions: Length of Stay (in days): 1 Acuity (Admit via E.D.?): Yes Comorbidities: Previous M.I. E.D. Visits: 1 - Answers: Total Score: 6 Risk of Readmission: Low Risk Care Management Discharge Reason for Hospitalization: Vertigo Discharge Plan: Nikita is being discharged home today, Omar did not have FWW available, Nikita has a friend that has a FWW he can borrow. CM offered additional resouces including [facility] or other local pharmacy to purchase. Nikita wants to be discharged he has family here that will bring him home. He did decline the MRI and feels that his symptoms have improved. CM reviewed discharge plan including ambulating safety and PT recomendations. Patient/Family Education Needs: Discharge education, limitations and follow up plan of care including ask me three and self management.
--- NOTE | 2019-11-29 17:36 | PT.INDS ---
Date of service: 11/29/19 Time of Service: 17:36 PT Notes Visit Reasons: Vertigo Physical Therapy Inpatient Discharge Summary Date: 11/29/2019 Dates of Service: 11/28/2019 only Referring Doctor: Gerson Trevino MD PT Orders: PT CONSULT: Fall safety assessment. Vertigo therapy maneuvers. Precautions: Fall. Standard. Activity as tolerated. Patient Profile/Admitting Diagnosis: Patient is an 79-year-old male who presented to the ED on 11/27/2019 with chief complaints of nausea, vomiting, and dizziness especially with ambulation performance. Head CT and CTA are both negative for any atherosclerotic process nor CVA. Patient is diagnosed with benign paroxysmal positional vertigo associated with nausea and vomiting. PMHX: Medical History (Updated 11/27/19 @ 14:09 by Vibha Ballesteros NP) CAD (coronary artery disease) (Chronic) Diabetes mellitus (Chronic) HTN (hypertension) (Chronic) Surgical History (Updated 11/27/19 @ 14:00 by Vibha Ballesteros NP) Hx of CABG (Chronic) S/P TAVR (transcatheter aortic valve replacement) (Acute) Social History/Home Situation: Patient lives with in a 2 floor house with no steps to enter. Patient states that he does not need to go up to the second floor as he has everything he needs on the main floor of the house. He is independent with all last of ADLs prior to admission. He is an avid ice ayon. Equipment Owned/DME: None Subjective: NT Objective: General Observation: NT Mental Status: NT Pain: NT ROM: Right Upper Extremity: Shoulder Flexion WFL. Shoulder abduction WFL. Elbow flexion WFL. Wrist flexion WFL. Opening and closing of hand WFL. Left Upper Extremity: Shoulder Flexion WFL. Shoulder abduction WFL. Elbow flexion WFL. Wrist flexion WFL. Opening and closing of hand WFL. Right Lower Extremity: Hip flexion WFL. Hip abduction WFL. Knee flexion WFL. Ankle dorsiflexion WFL. Ankle plantarflexion WFL. Left Lower Extremity: Hip flexion WFL. Hip abduction WFL. Knee flexion WFL. Ankle dorsiflexion WFL. Ankle plantarflexion WFL. Strength: Right Upper Extremity: Shoulder flexors 5/5. Shoulder abductors 5/5. Elbow flexors 5/5. Elbow extensors 5/5. Drain Technician strong. Left Upper Extremity: Shoulder flexors 5/5. Shoulder abductors 5/5. Elbow flexors 5/5. Elbow extensors 5/5. Drain Technician strong. Right Lower Extremity: Hip flexors 5/5. Hip abductors 5/5. Knee flexors 5/5. Knee extensors 5/5. Ankle dorsiflexors 5/5. Ankle plantarflexors 5/5. Left Lower Extremity:Hip flexors 5/5. Hip abductors 5/5. Knee flexors 5/5. Knee extensors 5/5. Ankle dorsiflexors 5/5. Ankle plantarflexors 5/5. Sensation: Intact as to pain and pressure on bilateral lower extremities. Bed Mobility/Transfers: Rolling independent Supine to sit supervision Sit to supine supervision Sit to stand CGA Stand to sit CGA Bed to chair CGA Chair to bed CGA Gait: Patient tolerated level surface ambulation of 120 feet +25 feet +25 using front wheeled walker with CGA of PT and SBA of student PT. Patient did report mild unsteadiness during ambulation activity which he states has greatly improved compared to day of admission. Ataxic gait. Decrease gait velocity due to unsteadiness. Balance: Static Sitting: Normal Dynamic Sitting: Good Static Standing: Fair Dynamic Standing: Fair Special Tests: Mobility Limitations Standardized Measure [facility] 6 clicks Basic Mobility Inpatient Short Form: Raw Score: 19 CMS Score: 42% deficit TESTING FOR VERTIGO: Negative for spontaneous nystagmus. Sharp-Anahi test and Alar ligament test limited by nuchal subcutaneous lipomatous mass. A left torsional upbeating nystagmus was seen with both right and the left Andrea-Hallpike but symptom and intensity provocation were greater with the right [facility]-Hallpike. Supine head roll test negative. Assessment: Patient with posterior posterior canal benign paroxysmal positional vertigo. He is an 79-year-old male who presented to the ED on 11/27/2019 with chief complaints of nausea, vomiting, and dizziness especially with ambulation performance. Head CT and CTA are both negative for any atherosclerotic process nor CVA. Patient is diagnosed with benign paroxysmal positional vertigo associated with nausea and vomiting. For the afternoon session, a Romberg test yielded positive result with patient demonstrating significant posterolateral sway with vision occluded. Patient's gait abnormality along positive Romberg test result necessitates MRI testing to rule out any neurologic pathology. Hospitalist and LICENSED NUCLEAR CONTROL ROOM OPERATOR were in agreement but patient refused stating that his symptoms are much more reduced. He demanded to go home instead. It was explained to him that he may continue to receive skilled PT treatment for BPPV as an out patient if needed. Patient presented with clinical signs and symptoms consistent with current/admitting diagnoses that have resulted to mobility limitations, gait instability, generalized weakness, and impairment of motor control as demonstrated by the following impairment level findings: 1. Impaired sitting/standing balance 2. Impaired activity tolerance Impairments are contributing to the following functional limitations: 1. Inability to safely ambulate without assistive device and physical assistance 2. Increase completion time for mobility ADL performance 3. Increased fall risk 4. Inability to negotiate steps alone safely Goals: Goals X1 week 1. Supine-Sit independent MET 2. Sit-Supine independent NOT MET 3. Sit-Stand independent NOT MET 4. Stand-Sit independent NOT MET 5. Bed-Chair independent NOT MET 6. Chair-Bed independent NOT MET 7. Independent gait on level surface with use of least restrictive device for at least 300 feet without report of pain nor dyspnea NOT MET 8. Independent stair negotiation while holding onto bilateral rails for at least 10 steps without report of pain nor dyspnea NOT MET 9. Independent with home exercise program NOT MET 10. Good static and dynamic standing balance/tolerance NOT MET DISCHARGE RECOMMENDATIONS: Continued outpatient physical therapy for management of posterior canal BPPV as needed. Patient will highly benefit from the use of a front wheeled walker in order to increase stability of gait and reduce fall risk at discharge destination. TREATMENT CODE/TIME: NC. Thank you very much for this referral. Faina Yancey PT, DPT, CLT [facility] [place], [place]
== END 2019-11-28 17:08 | disposition home or self-care (01) ==
LOC: ER 12:17 → MS 13:33
PROVIDERS: Admitting Provider Internal Medicine; Emergency Provider Emergency Medicine; PCP Family Medicine; Visit Provider Internal Medicine
DX: H81.10 Benign paroxysmal vertigo, unspecified ear (principal); R11.2 Nausea with vomiting, unspecified; E11.9 Type 2 diabetes mellitus without complications; Z95.4 Presence of other heart-valve replacement; I10 Essential (primary) hypertension; Z79.84 Long term (current) use of oral hypoglycemic drugs
CPT/HCPCS: 36415; 70496; 70498; 80048; 80053; 83690; 93005; 96361; 96374; 96375; 97162; 97530; 99217; 99223; 99285; J1650; 70450; 71046; 74176; 84484; 85025; 93010; 99220; G0378; J1200; J2405; J3360; J3490